=== PATIENT | female | born 1980 | race Two or more races ===

== ENCOUNTER 2016-10-22 15:35 | Emergency (ER) | payer MEDICAID, OTHER ==
[2016-10-22] MEDS ORDERED: Ondansetron 4 MG/2 ML SDV IVPUSH ONE (16:57)
[2016-10-22] MEDS ORDERED: fentaNYL 100 MCG/2 ML SDV IVPUSH ONE ×2 (16:58→19:36)
[2016-10-22] MEDS ORDERED: Sodium Chloride 0.9% 1,000 ML IV SCH (17:00)
--- NOTE | 2016-10-22 17:07 | EDM.PDOC ---
ED HPI GENERAL MEDICAL PROBLEM - General Chief Complaint: Abdominal Pain Stated Complaint: ABDOMINAL PAIN, NOT EATING, VOMITING Time Seen by Provider: 10/22/16 16:46 Source of Information: Reports: Patient History Limitations: Reports: No Limitations - History of Present Illness INITIAL COMMENTS - FREE TEXT/NARRATIVE: 36 yo female presents with severe ABD pain and distention. Pt was seen in clinic 2 weeks ago [place] for vaginitis with clindamycin. vaginitis has not resolved since clinic visit however ABD pain has become severe. She has not had a BM in 3 days and has taken 2 bottles of Mg2+ citrate. ABD distention pain and nausea. LMP earlier this month and was normal. She has never had ABD surgery. 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 Denies : Flatus : Reports: Dysuria. Denies: Flank Pain, Frequency Neurological: Denies: Confusion ED EXAM, GI/ABD - Physical Exam Exam: See Below Exam Limited By: Other (faroese translation through family friend) General Appearance: Alert, WD/WN, Moderate Distress Head: Atraumatic, Normocephalic Neck: Normal Inspection, Supple, Non-Tender, Full Range of Motion. No: Lymphadenopathy (R), Lymphadenopathy (L) Respiratory/Chest: No: No Respiratory Distress, Lungs Clear, Normal Breath Sounds Cardiovascular: Normal Peripheral Pulses, Regular Rate, Rhythm, No Murmur GI/Abdominal: Hypoactive Bowel Sounds, Tenderness, Distention, Rigidity Back Exam: Normal Inspection, Full Range of Motion Neurological: Alert, Oriented Course - Vital Signs Last Recorded V/S: Last Vital Signs Temp 36.8 C 10/22/16 16:11 Pulse 77 10/22/16 18:13 Resp 16 10/22/16 18:13 BP 142/93 H 10/22/16 18:13 Pulse Ox 96 10/22/16 18:13 - Orders/Labs/Meds Orders: Active Orders 24 hr Category Date Time Status Abdomen Pelvis w Cont [CT] Stat Exams 10/22/16 16:58 Taken Iopamidol [Isovue-300 (61%)] Med 10/22/16 17:34 Active 83 ml IV . DIRECTED PRN Sodium Chloride 0.9% [Normal Saline] 1,000 ml Med 10/22/16 17:00 Active IV ASDIRECTED Sodium Chloride 0.9% [Normal Saline] 74 ml Med 10/22/16 17:45 Active IV ASDIRECTED Medication Orders Sodium Chloride (Normal Saline) 1,000 mls @ 500 mls/hr IV ASDIRECTED ANGIE Last Admin: 10/22/16 17:27 Dose: 500 mls/hr Sodium Chloride (Normal Saline) 74 mls @ 3 mls/sec IV ASDIRECTED ANGIE Last Admin: 10/22/16 17:54 Dose: 3 mls/sec Iopamidol (Isovue-300 (61%)) 83 ml IV . DIRECTED PRN PRN Reason: RADIOLOGY EXAM Stop: 10/23/16 17:35 Last Admin: 10/22/16 17:55 Dose: 100 ml Labs: Laboratory Tests 10/22/16 10/22/16 10/22/16 Range/Units 16:56 16:56 17:00 WBC 10.3 (4.5-11.0) K/uL RBC 5.16 (3.30-5.50) M/uL Hgb 12.7 (12.0-15.0) g/dL Hct 40.4 (36.0-48.0) % MCV 78 L (80-98) fL MCH 25 L (27-31) pg MCHC 31 L (32-36) % Plt Count 353 (150-400) K/uL Neut % (Auto) 89 H (36-66) % Lymph % (Auto) 7 L (24-44) % Jennings % (Auto) 4 (2-6) % Eos % (Auto) 0 L (2-4) % Baso % (Auto) 0 (0-1) % Sodium 141 (140-148) mmol/L Potassium 3.5 L (3.6-5.2) mmol/L Chloride 102 (100-108) mmol/L Carbon Dioxide 30 (21-32) mmol/L Anion Gap 12.5 (5.0-14.0) mmol/L BUN 6 L (7-18) mg/dL Creatinine 0.6 (0.6-1.0) mg/dL Est Cr Clr Drug Dosing 94.00 mL/min Estimated GFR (MDRD) > 60 (>60) Glucose 134 H (74-106) mg/dL Calcium 8.9 (8.5-10.1) mg/dL Total Bilirubin 0.4 (0.2-1.0) mg/dL AST 30 (15-37) U/L ALT 42 (12-78) U/L Alkaline Phosphatase 103 (46-116) U/L Total Protein 8.6 H (6.4-8.2) g/dL Albumin 4.0 (3.4-5.0) g/dL Globulin 4.6 H (2.3-3.5) g/dL Albumin/Globulin Ratio 0.9 L (1.2-2.2) Urine Color Urine Appearance Urine pH (4.5-8.0) Ur Specific [place] (1.008-1.030) Urine Protein (NEGATIVE) mg/dL Urine Glucose (UA) (NEGATIVE) mg/dL Urine Ketones (NEGATIVE) mg/dL Urine Occult Blood (NEGATIVE) Urine Nitrite (NEGATIVE) Urine Bilirubin (NEGATIVE) Urine Urobilinogen (NORMAL) mg/dL Ur Leukocyte Esterase (NEGATIVE) Urine RBC (0-5) Urine WBC (0-5) Ur Epithelial Cells Amorphous Sediment Urine Bacteria Urine Mucus Urine Other Urine HCG, Qual Negative 10/22/16 Range/Units 17:00 WBC (4.5-11.0) K/uL RBC (3.30-5.50) M/uL Hgb (12.0-15.0) g/dL Hct (36.0-48.0) % MCV (80-98) fL MCH (27-31) pg MCHC (32-36) % Plt Count (150-400) K/uL Neut % (Auto) (36-66) % Lymph % (Auto) (24-44) % Jennings % (Auto) (2-6) % Eos % (Auto) (2-4) % Baso % (Auto) (0-1) % Sodium (140-148) mmol/L Potassium (3.6-5.2) mmol/L Chloride (100-108) mmol/L Carbon Dioxide (21-32) mmol/L Anion Gap (5.0-14.0) mmol/L BUN (7-18) mg/dL Creatinine (0.6-1.0) mg/dL Est Cr Clr Drug Dosing mL/min Estimated GFR (MDRD) (>60) Glucose (74-106) mg/dL Calcium (8.5-10.1) mg/dL Total Bilirubin (0.2-1.0) mg/dL AST (15-37) U/L ALT (12-78) U/L Alkaline Phosphatase (46-116) U/L Total Protein (6.4-8.2) g/dL Albumin (3.4-5.0) g/dL Globulin (2.3-3.5) g/dL Albumin/Globulin Ratio (1.2-2.2) Urine Color Yellow Urine Appearance Cloudy Urine pH 8.0 (4.5-8.0) Ur Specific [place] 1.015 (1.008-1.030) Urine Protein Trace (NEGATIVE) mg/dL Urine Glucose (UA) Normal (NEGATIVE) mg/dL Urine Ketones 150 H (NEGATIVE) mg/dL Urine Occult Blood Negative (NEGATIVE) Urine Nitrite Negative (NEGATIVE) Urine Bilirubin Negative (NEGATIVE) Urine Urobilinogen Normal (NORMAL) mg/dL Ur Leukocyte Esterase Negative (NEGATIVE) Urine RBC 0-5 (0-5) Urine WBC 0-5 (0-5) Ur Epithelial Cells Few Amorphous Sediment Moderate Urine Bacteria Few Urine Mucus Few Urine Other See note Urine HCG, Qual Meds: Medications Generic Name Dose Route Start Last Admin Trade Name Freq PRN Reason Stop Dose Admin Sodium Chloride 1,000 mls @ 500 mls/hr 10/22/16 17:00 10/22/16 17:27 Normal Saline IV 500 mls/hr ASDIRECTED ANGIE Administration Sodium Chloride 74 mls @ 3 mls/sec 10/22/16 17:45 10/22/16 17:54 Normal Saline IV 3 mls/sec ASDIRECTED ANGIE Administration Iopamidol 83 ml 10/22/16 17:34 10/22/16 17:55 Isovue-300 (61%) IV 10/23/16 17:35 100 ml . DIRECTED PRN Administration RADIOLOGY EXAM Discontinued Medications Generic Name Dose Route Start Last Admin Trade Name Christine PRN Reason Stop Dose Admin Fentanyl 50 mcg 10/22/16 16:58 10/22/16 17:29 Sublimaze IVPUSH 10/22/16 16:59 50 mcg ONETIME ONE Administration Fentanyl 50 mcg 10/22/16 19:36 10/22/16 19:43 Sublimaze IVPUSH 10/22/16 19:37 50 mcg ONETIME ONE Administration Ondansetron HCl 4 mg 10/22/16 16:57 10/22/16 17:32 Zofran IVPUSH 10/22/16 16:58 4 mg ONETIME ONE Administration Sodium Biphosphate/Sodium Phosphate 133 ml 10/22/16 19:36 10/22/16 20:07 Fleet Enema RECTAL 10/22/16 19:37 133 ml ONETIME ONE Administration Sodium Chloride 10 ml 10/22/16 17:34 10/22/16 17:54 Saline Flush FLUSH 10/22/16 17:35 10 ml ONETIME ONE Administration - Re-Assessments/Exams Free Text/Narrative Re-Assessment/Exam: 10/22/16 20:44 CT scan ABD moderate stool in colon with obstruction in rectum. fleet enema produced large amounts. Pt feels much better and is hungry Departure - Departure Time of Disposition: 20:45 Disposition: Home, Self-Care 01 Condition: Good Clinical Impression: Constipation Qualifiers: Constipation type: unspecified constipation type Qualified Code(s): K59.00 - Constipation, unspecified - Discharge Information Forms: ED Department Discharge Additional Instructions: Increase fluid intake with goal of 1.5-2 liters of water per day you were very dehydrated tonight, encourage fluids fiber rich food - whole grains, fruits and vegetables follow-up with primary care if pain continues - My Orders Last 24 Hours: My Active Orders 10/22/16 16:58 Abdomen Pelvis w Cont [CT] Stat 10/22/16 17:00 Sodium Chloride 0.9% [Normal Saline] 1,000 ml IV ASDIRECTED 10/22/16 17:34 Iopamidol [Isovue-300 (61%)] 83 ml IV . DIRECTED PRN 10/22/16 17:45 Sodium Chloride 0.9% [Normal Saline] 74 ml IV ASDIRECTED - Assessment/Plan Last 24 Hours: My Active Orders 10/22/16 16:58 Abdomen Pelvis w Cont [CT] Stat 10/22/16 17:00 Sodium Chloride 0.9% [Normal Saline] 1,000 ml IV ASDIRECTED 10/22/16 17:34 Iopamidol [Isovue-300 (61%)] 83 ml IV . DIRECTED PRN 10/22/16 17:45 Sodium Chloride 0.9% [Normal Saline] 74 ml IV ASDIRECTED
[2016-10-22] MEDS ORDERED: Iopamidol 612 MG/ML 100 ML Bottle IV PRN (17:34)
[2016-10-22] MEDS ORDERED: Sodium Chloride 0.9% 10 ML Syringe FLUSH ONE (17:34)
[2016-10-22 18:14] VITALS: BP 142/93
[2016-10-22] MEDS ORDERED: Sodium Phosphate,Monobasic/Sodium Phosphate,Dibasic Enema 133 ML Bottle RECTAL ONE (19:36)
== END 2016-10-22 21:18 | disposition home or self-care (01) ==
LOC: JP.ED 15:35
DX: K59.00 Constipation, unspecified (principal)
CPT/HCPCS: 36415; 74177; 80053; 81001; 81025; 85025; 96361; 96374; 96375; 96376; 99284; A9270; J2405; J3010; J7030; J7040; J7050; Q9967